=== PATIENT | female | born 1985 | race Caucasian/White ===

== ENCOUNTER 2022-10-04 11:00 | Emergency (ER) | payer MEDICAID ==
[~2022-10-04] VITALS: Ht 167.6 cm; Wt 70.9 kg
[~2022-10-04 11:00] MED LIST: CEPH500C PO; PHEN-922 PO
[2022-10-04 11:27] LABS: Urine Bacteria NONE SEEN /hpf (None Seen); Urine Blood Negative /uL (Negative); Urine Mucus FEW (None Seen); Urine Specific Gravity 1.023 (1.001-1.035); Urine WBC 2 /hpf (0 - 5)
[2022-10-04] MEDS ORDERED: DIPH25CA51 PO (12:24)
[2022-10-04] MEDS ORDERED: FAMO20TA10 GT (12:24)
[2022-10-04] MEDS ORDERED: PRED20TA2 PO (12:24)
[2022-10-04] MEDS ORDERED: predniSONE 20 MG TAB PO ONE (12:30)
[2022-10-04] MEDS ORDERED: FAMOTIDINE 20 MG TAB PO ONE (12:30)
[2022-10-04 12:41] VITALS: BP 123/91; PULSE 98; RESP 17; TEMP 98.9; O2SAT 98
== END 2022-10-04 12:44 | disposition home or self-care (01) ==
LOC: ER 11:00 → EEVIPCON 11:00 → ER 12:44
DX: R30.0 Dysuria (principal); T78.40XA Allergy, unspecified, initial encounter; Z79.899 Other long term (current) drug therapy; X58.XXXA Exposure to other specified factors, initial encounter
CPT/HCPCS: 81001; 99283; J7512

== ENCOUNTER 2022-12-11 09:26 | Emergency (ER) | payer MEDICAID ==
[~2022-12-11] VITALS: Ht 167.6 cm; Wt 70.9 kg
[~2022-12-11 09:26] MED LIST changes: +DIPH25CA51 PO; +FAMO20TA10 GT; +PRED20TA2 PO
[2022-12-11 09:45] VITALS: BP 143/99; PULSE 135; RESP 20; TEMP 97.8; O2SAT 99
[2022-12-11] MEDS ORDERED: LIDOCAINE 1% HCL (LOCAL ANESTH.) INJ 20ML MDV IJ ONE (10:00)
[2022-12-11] MEDS ORDERED: HYDROcodone-ACET 10/325MG TAB PO ONE (10:30)
[2022-12-11] MEDS ORDERED: TETANUS-DIPTH-ACEL PERTUSSIS 0.5ML SYR Tdap IM ONE (12:15)
[2022-12-11] MEDS ORDERED: ACET300T51 PO (12:17)
[2022-12-11] MEDS ORDERED: BACIOIN15 TOP (12:17)
[2022-12-11] MEDS ORDERED: AUG875T PO (12:17)
[2022-12-11] MEDS ORDERED: IBUP-1455 PO (12:17)
== END 2022-12-11 12:45 | disposition home or self-care (01) ==
LOC: ER 09:26 → EEVIPCON 09:26 → ER 12:45
DX: S62.635A Displaced fracture of distal phalanx of left ring finger, initial encounter for closed fracture (principal); S62.631A Displaced fracture of distal phalanx of left index finger, initial encounter for closed fracture; S61.211A Laceration without foreign body of left index finger without damage to nail, initial encounter; S61.215A Laceration without foreign body of left ring finger without damage to nail, initial encounter; S80.02XA Contusion of left knee, initial encounter; S80.01XA Contusion of right knee, initial encounter; W54.0XXA Bitten by dog, initial encounter; Y93.89 Activity, other specified; Y92.89 Other specified places as the place of occurrence of the external cause; Y99.8 Other external cause status
CPT/HCPCS: 12001; 29130; 73130; 90471; 90715; 99284; J2001

== ENCOUNTER 2022-12-15 13:24 | Emergency (ER) | payer MEDICAID ==
[~2022-12-15] VITALS: Ht 167.6 cm; Wt 71.2 kg
[~2022-12-15 13:24] MED LIST changes: +ACET300T51 PO; +AUG875T PO; +BACIOIN15 TOP; +IBUP-1455 PO
[2022-12-15] MEDS ORDERED: CLINDAMYCIN 600MG IV 50 ML IV ONE (14:15)
[2022-12-15 14:20] VITALS: BP 123/83; PULSE 118; RESP 16; TEMP 97.9; O2SAT 96
== END 2022-12-15 15:37 | disposition home or self-care (01) ==
LOC: ER 13:24 → EEVIPCON 13:24 → ER 15:35
DX: S62.603D Fracture of unspecified phalanx of left middle finger, subsequent encounter for fracture with routine healing (principal); Z48.00 Encounter for change or removal of nonsurgical wound dressing; Z88.1 Allergy status to other antibiotic agents; W54.0XXD Bitten by dog, subsequent encounter
CPT/HCPCS: 96365; 99284; J3490

== ENCOUNTER 2024-05-16 18:39 | Inpatient (IN) | payer MEDICAID, SELFPAY ==
[~2024-05-16] VITALS: Ht 167.6 cm; Wt 77.7 kg
[~2024-05-16 18:39] MED LIST changes: +NITR-87 PO
--- NOTE | 2024-05-16 19:08 | ED.PDOC ---
History of Present Illness HPI Comments 39-year-old female that came to emergency room due to nausea and vomiting. Patient was apparently well, came to work this morning, at about 11am, she started having upper body pains and aches, headaches. and later associated with cramping abdominal pain with bouts of nausea and vomiting. Patient states she feels very dehydrated and she started drinking copious amounts of fluids to keep hydrated. She started feeling short of breath as well, and one hour ago, she started having bouts of diarrhea as well. No fever noted. Patient states a co worker of hers is experiencing the same symptoms also. Chief Complaint: Nausea/Vomiting Time Seen by MD: 19:06 Primary Care Provider: Sybil Dupree Notes: Nurses Notes Allergies: Coded Allergies: Cephalexin (Verified Allergy, Unknown, 12/11/22) Home Meds Active Scripts Nitrofurantoin Monohydrate Mac (Macrobid) 100 Mg Cap, 100 MG PO BID for 5 Days, #10 CAP Prov:LEVY CALABRESEP 04/28/24 Bacitracin Base (Bacitracin) 500 Unit/Gm Oin, 500 UNIT TOP BID, #30 GM Prov:YUE STARR PAC 12/11/22 Acetaminophen W/ Codeine (Acetaminophen/Codeine) 1 Tab Tab, 1 TAB PO Q6HR, #20 TAB Prov:YUE STARR PAC 12/11/22 Amoxicillin & Pot Clavulanate (AUGMENTIN TABLET) 875 Mg Tb, 875 MG PO BID for 10 Days, #20 TAB Prov:YUE STARR PAC 12/11/22 Ibuprofen Micronized (Ibuprofen) 800 Mg Tab, 800 MG PO Q8HP PRN, #30 TAB Prov:YUE STARR PAC 12/11/22 Diphenhydramine Hcl (BENADRYL CAPSULE) 25 Mg Cp, 50 MG PO Q6HP PRN, #20 CAP Prov:LEX DELGADO MD 10/04/22 Famotidine (PEPCID TABLET) 20 Mg Tb, 20 MG GT BID, #8 TAB Prov:LEX DELGADO MD 10/04/22 Prednisone (Prednisone) 20 Mg Tab, 40 MG PO DAILY, #8 MG Prov:LEX DELGADO MD 10/04/22 Phenazopyridine HCl (Phenazopyridine Hydrochlo) 200 Mg Tab, 1 TAB PO TID for 3 Days, #9 TAB Prov:YEIMI DUPREE TONE REGULATOR 09/19/22 Cephalexin Monohydrate (Cephalexin) 500 Mg Cap, 1 CAP PO QID for 10 Days, #40 CAP Prov:YEIMI DUPREE TONE REGULATOR 09/19/22 Information Source: Patient Mode of Arrival: Ambulatory Severity: Moderate Timing: Hours Duration: Since onset Review of Systems REVIEW OF SYSTEMS: No fever, no chills, or fatigue (+) myalgia HEENT: No sore throat, no earache, no congestion, no neck pain. Cardiac: No chest pain. No palpitations. Lungs: (+) shortness of breath, no cough. GI: (+) nausea, (+) vomiting, (+) diarrhea, no constipation, (+) abdominal pain (+) polydipsia : No dysuria, frequency, or urgency. No hematuria. Musculoskeletal: No joint pain , no joint swelling, no extremity edema. Skin: No rash, no itching. Neuro: (+) headache, no dizziness, no weakness Vital Signs Vital Signs Date Time Temp Pulse Resp B/P (MAP) Pulse Ox O2 Delivery O2 Flow Rate FiO2 05/16/24 22:00 98.8 87 16 120/76 (91) 95 98.8 05/16/24 19:28 Room Air* 0 21 Physical Exam General: Awake, alert and oriented. No acute distress. Skin: Skin in warm, dry and intact. Appropriate color for ethnicity. Nailbeds pink with no cyanosis. HEENT: The head is normocephalic and atraumatic. Conjunctivae are clear without exudates or hemorrhage. Sclera is non-icteric. EOM are intact. No signs of nystagmus. Eyelids are normal in appearance without swelling or lesions. Oral mucosa is pink and moist Neck: The neck is supple with normal range of motion. No JVD. Cardiac: Rapid rate, regular rhythm No murmurs, gallops, or rubs are auscultated. Respiratory: No signs of respiratory distress. Lung sounds are clear in all lobes bilaterally without rales, ronchi, or wheezes. Abdominal: Abdomen is soft, non-tender without distention. Bowel sounds are present and normoactive in all four quadrants. Extremities: Upper and lower extremities are atraumatic in appearance without deformity or edema. Neurological: The patient is awake, alert and oriented to person, place, and time with normal speech. Speech is clear. There is no facial asymmetry. Psychiatric: Appropriate mood and affect. Good judgement and insight. No visual or auditory hallucinations. Past Medical History PAST MEDICAL HISTORY: Anxiety Surgical History: Denies all surgeries [employer] MECHANIC History: No Pertinent [employer]ST[employer] MECHANIC History Family History Family History: Reviewed,noncontributory to illness Social History Smoker: Cigarettes Alcohol: Denies ETOH Use Drugs: Denies Drug Use Lives In: Home Was a procedure done? Was a procedure done?: No Differential Dx Considerations may include: Anemia, electrolyte imbalance, dehydration, viral syndrome, gastroenteritis X-Ray, Labs, Meds, VS Vital Signs Date Time Temp Pulse Resp B/P (MAP) Pulse Ox O2 Delivery O2 Flow Rate FiO2 05/16/24 22:00 98.8 87 16 120/76 (91) 95 98.8 05/16/24 19:28 84 20 100 Room Air* 0 21 05/16/24 19:28 99.7 84 20 126/78 (94) 100 99.7 05/16/24 19:11 99.3 103 22 117/71 (86) 100 99.3 05/16/24 18:46 97.6 121 18 132/95 (107) 99 97.6 Lab Test 05/16/24 20:16 05/16/24 20:11 05/16/24 19:17 05/16/24 19:07 Range/Units Lactic Acid Level 1.5 0.4-2.0 mmol/L Influenza Type A Antigen Negative Negative Influenza Type B Antigen Negative Negative SARS-CoV-2 Antigen (Rapid) Negative NEGATIVE Hemoglobin A1c 4.8 <5.7 % A1C White Blood Count 17.7 H 4.4-10.8 10^3/uL Red Blood Count 4.44 4.0-5.20 10^6/uL Hemoglobin 13.6 12.2-16.2 g/dL Hematocrit 40.7 36.0-46.0 % Mean Corpuscular Volume 91.7 80.0-100.0 fL Mean Corpuscular Hemoglobin 30.6 28.0-32.0 pg Mean Corpuscular Hemoglobin Concent 33.3 32.0-36.0 g/dL Red Cell Distribution Width 13.2 11.8-14.3 % Platelet Count 306 140-450 10^3/uL Mean Platelet Volume 7.8 6.9-10.8 fL Neutrophils (%) (Auto) 94.3 H 37.0-80.0 % Lymphocytes (%) (Auto) 2.9 L 10.0-50.0 % Monocytes (%) (Auto) 2.0 0.0-12.0 % Eosinophils (%) (Auto) 0.5 0.0-7.0 % Basophils (%) (Auto) 0.3 0.0-2.0 % Neutrophils # (Auto) 16.7 H 1.6-8.6 10 ^3/uL Lymphocytes # (Auto) 0.5 0.4-5.4 10 ^3/uL Monocytes # (Auto) 0.4 0-1.3 10 ^3/uL Eosinophils # (Auto) 0.1 0-0.8 10 ^3/uL Basophils # (Auto) 0 0-0.2 10 ^3/uL Nucleated Red Blood Cells 0.0 % Sodium Level 138 136-145 mmol/L Potassium Level 4.0 3.5-5.1 mmol/L Chloride Level 109 H 98-107 mmol/L Carbon Dioxide Level 20 20-31 mmol/L Anion Gap 9 5-15 Blood Urea Nitrogen 14 9-23 mg/dL Creatinine 0.69 0.550-1.02 mg/dL Glomerular Filtration Rate Calc 113 >90 mL/min BUN/Creatinine Ratio 20.3 H 10.0-20.0 Serum Glucose 127 H 74-106 mg/dL Calcium Level 9.7 8.7-10.4 mg/dL Total Bilirubin 0.7 0.2-1.0 mg/dL Aspartate Amino Transferase (AST) 17 13-40 U/L Alanine Aminotransferase (ALT) 17 7-40 U/L Alkaline Phosphatase 51 46-116 U/L Total Protein 7.3 5.7-8.2 g/dL Albumin 4.7 3.2-4.8 g/dL Lipase 39 12-53 U/L Thyroid Stimulating Hormone (TSH) 0.78 0.55-4.78 uIU/mL Test 05/16/24 18:49 05/16/24 18:46 Range/Units Urine Color Yellow Yellow Urine Clarity Clear Clear Urine pH 7.0 5.0-9.0 Urine Specific [place] 1.035 1.001-1.035 Urine Protein Trace H Negative Urine Ketones 1+ H Negative Urine Blood Negative Negative /uL Urine Nitrite Negative Negative Urine Bilirubin Negative Negative Urine Urobilinogen Normal Negative mg/dL Urine Leukocyte Esterase Negative Negative /uL Urine RBC 1 0 - 4 /hpf Urine Microscopic WBC < 1 0-5 /HPF Urine Squamous Epithelial Cells Few <5 /hpf Urine Bacteria None seen None Seen /hpf Urine Mucus Few None Seen Urine Glucose Normal Normal mg/dL Urine Test Negative Negative Urine Opiates Screen Neg NEGATIVE Urine Fentanyl Screen Neg NEGATIVE Urine Barbiturates Screen Neg NEGATIVE Urine Phencyclidine Screen Neg NEGATIVE Urine Amphetamines Screen Pos NEGATIVE Urine Benzodiazepines Screen Neg NEGATIVE Urine Cocaine Screen Neg NEGATIVE Urine Cannabinoids Screen Neg NEGATIVE POC Glucose 120 H 70-106 mg/dl Current Medications Medications (Trade) Dose Ordered Sig/[place] Route Start Time Stop Time Status Last Admin Sodium Chloride 1,000 ml @ 1,000 mls/hr Q1H ONCE IV 05/16/24 19:00 05/16/24 19:59 DC 05/16/24 19:22 Ondansetron HCl (Zofran) 4 mg ONCE ONCE IV 05/16/24 19:00 05/16/24 19:01 DC 05/16/24 19:50 Ketorolac Tromethamine (Toradol Injection) 30 mg ONCE ONCE IV 05/16/24 19:00 05/16/24 19:01 DC 05/16/24 19:51 Sodium Chloride 1,000 ml @ 1,000 mls/hr Q1H ONCE IV 05/16/24 22:00 05/16/24 22:59 DC 05/16/24 21:00 Sodium Chloride 1,000 ml @ 130 mls/hr Q7H42M ONCE IV 05/16/24 22:00 05/16/24 23:16 DC 05/16/24 22:01 CHEST RADIOGRAPH Indication: Shortness of breath, cough Technique: Frontal and lateral view of the chest was obtained Comparison: None FINDINGS: Lines and Tubes: None Lungs: Clear Pleura: No effusion. No pneumothorax. Cardiomediastinal contours: Unremarkable Bones: Unremarkable IMPRESSION: No abnormality. Time of 1ST Reevaluation: 19:00 Reevaluation 1ST: Unchanged Patient Education/Counseling: Diagnosis, Treatment Family Education/Counseling: Diagnosis, Treatment Departure 1 Departure Time of Disposition: 00:39 Impression: Primary Impression: Nausea vomiting and diarrhea Additional Impression: Leukocytosis Disposition: 09 ADMITTED INPATIENT Condition: Stable Comments 39-year-old female who presents to the emergency department with nausea, vomiting, diarrhea, body aches. Labs revealed leukocytosis . Patient was tachycardic. This improved with IV fluids. Patient is afebrile, no elevation of lactic acid, she is not hypotensive. UA negative for urinary tract infection. Chest x-ray negative for pneumonia. Patient admitted for further treatment, evaluation and monitoring. Extensive evaluation was performed in attempt to identify or rule out: (See differential diagnosis section) The following tests were ordered, and results were reviewed by me: (See diagnostic results section) The following test were independently interpreted by me: N/A I reviewed and agreed with the following test results read by other providers: N/A I reviewed the following notes from the pt's past medical encounters: Previous encounter for dog bite wound Additional information was gathered from interviewing the following independent historians: Patient's at bedside Discussion of management or test interpretation with external physician/other qualified health spiritual care coordinator: N/A Decision regarding hospitalization or escalation of hospital level of care: Risk and benefits of admission for further treatment of patient's condition was considered. Due to patient's current clinical condition, high risk of decline and poor outcome if discharged and need for further inpatient management and monitoring, patient will be admitted to the hospital. Critical Care Note Critical Care Time?: No Stability Stability form required: No Heart Score Heart Score: Heart Score Response (Comments) Value History N/A 0 EKG N/A 0 Age N/A 0 Risk Factors N/A 0 Troponin N/A 0 Total 0 I personally scribed for PENNY CRANE MD ([email or web address]) on 05/16/24 at 19:08. Electronically submitted by Chris Murrieta [email or web address]). I personally scribed for PENNY CRANE MD ([email or web address]) on 05/16/24 at 22:06. Electronically submitted by Chris Murrieta [email or web address]). PENNY CRANE MD May 16, 2024 19:08
[2024-05-16] MEDS: SODIUM CHLORIDE 0.9% 1,000 ML IV ONE ×3 (19:22→22:01)
[2024-05-16 19:28] VITALS: PULSE 84; RESP 20; O2SAT 100
[2024-05-16 19:29] LABS: Basophils # (auto) 0 10 ^3/uL (0-0.2); Basophils % (auto) 0.3 % (0.0-2.0); Eosinophils # (auto) 0.1 10 ^3/uL (0-0.8); Eosinophils % (auto) 0.5 % (0.0-7.0); Hematocrit 40.7 % (36.0-46.0); Hemoglobin 13.6 g/dL (12.2-16.2); Lymphocytes # (auto) 0.5 10 ^3/uL (0.4-5.4); Lymphocytes % (auto) 2.9 % (10.0-50.0); Mean Corpuscular Hemoglobin 30.6 pg (28.0-32.0); Mean Corpuscular Hgb Conc. 33.3 g/dL (32.0-36.0); Mean Corpuscular Volume 91.7 fL (80.0-100.0); Monocytes # (auto) 0.4 10 ^3/uL (0-1.3); Neutrophils # (auto) 16.7 10 ^3/uL (1.6-8.6); Neutrophils % (auto) 94.3 % (37.0-80.0); Platelet Count (auto) 306 10^3/uL (140-450); Red Blood Cells 4.44 10^6/uL (4.0-5.20); Red Cell Distribution Width 13.2 % (11.8-14.3); White Blood Cell 17.7 10^3/uL (4.4-10.8)
[2024-05-16 19:44] LABS: Alanine Aminotransferase 17 U/L (7-40); Albumin 4.7 g/dL (3.2-4.8); Alkaline Phosphatase 51 U/L (46-116); Anion Gap 9 (5-15); Aspartate Aminotransferase 17 U/L (13-40); BUN/Creatinine Ratio 20.3 (10.0-20.0); Bilirubin, Total 0.7 mg/dL (0.2-1.0); Blood Urea Nitrogen 14 mg/dL (9-23); Calcium 9.7 mg/dL (8.7-10.4); Carbon Dioxide 20 mmol/L (20-31); Chloride 109 mmol/L (98-107); Glucose 127 mg/dL (74-106); Lipase 39 U/L (12-53); Sodium 138 mmol/L (136-145); Total Protein 7.3 g/dL (5.7-8.2)
[2024-05-16] MEDS: ONDANSETRON HCL 4 MG/2 ML VIAL IV ONE (19:50)
[2024-05-16] MEDS: KETOROLAC TROMETH 30 MG/ML 1ML VIAL IV ONE (19:51)
[2024-05-16] MEDS ORDERED: SODIUM CHLORIDE 0.9% 1,000 ML IV ONE (20:15)
--- NOTE | 2024-05-16 21:11 | DVH ---
CHEST RADIOGRAPH Indication: Shortness of breath, cough Technique: Frontal and lateral view of the chest was obtained Comparison: None FINDINGS: Lines and Tubes: None Lungs: Clear Pleura: No effusion. No pneumothorax. Cardiomediastinal contours: Unremarkable Bones: Unremarkable IMPRESSION: No abnormality.
[2024-05-16 21:14] LABS: COVID19 ANTIGEN SOFIA FIA NEGATIVE (NEGATIVE); Rapid Influenza A Negative (Negative); Rapid Influenza B Negative (Negative)
[2024-05-16 21:33] LABS: Urine Bacteria None Seen /hpf (None Seen)
[2024-05-16 21:53] LABS: Urine Blood Negative /uL (Negative); Urine Clarity Clear (Clear); Urine Color Yellow (Yellow); Urine Mucus FEW (None Seen); Urine Protein, UAD TRACE (Negative); Urine Specific Gravity 1.035 (1.001-1.035); Urine Squamous Epithelial Cell FEW /hpf (<5); Urine Urobilinogen Normal (Negative); Urine WBC < 1 /HPF (0-5)
[2024-05-16] MEDS ORDERED: cefTRIAXone 1GM/50ML D5W 50 ML IV ONE (23:00)
--- NOTE | 2024-05-16 23:14 | DVHHPRES ---
History of Present Illness Resident Creating Document: NAKUL SANTILLAN RESIDENT Reason for Visit: abdominal pains, nausea and vomiting History of Present Illness 39 year old female with no known past medical history, presents to the ED with a complaints of abdominal pain, nausea and vomiting that started this afternoon. Patient mentioned that this afternoon while at work she came in contact with a work colleagues who was feeling unwell. When she went home, she started feeling unwell started having persistent nausea vomiting coupled with a diarrhea. Diarrhea is watery with mucus, but not bloody and no and no blood. course any she is unable to keep anything down and patient decided to come to the ED to be evaluated. Denies any chest pain, shortness of breath, fevers, dizziness or weakness. Pmhx: None PShx: left hand fracture repair Fmhx: lungs cancer( small cell carcinoma) in mother, grandfather and uncle Shx; smokes 1 pack in 4 days, alcohol during occasions Past Medical History See HPI Past Surgical History See HPI Review of Systems Constitutional: No: Fever, Chills, Sweats, Weakness, Malaise, Other Eyes: No: Pain, Vision change, Conjunctivae inflammation, Eyelid inflammation, Other, Redness ENT: No: Ear pain, Ear discharge, Nose pain, Nose discharge, Nose congestion, Mouth pain, Mouth swelling, Throat pain, Throat swelling, Other Respiratory: No: Cough, Dry, Shortness of breath, SOB with excertion, Wheezing, Hemoptysis, Pleuritic Pain, Sputum, Wheezing, Other Cardiovascular: Chest Pain; No: Palpitations, Orthopnea, Paroxysmal Noc. Dyspnea, Edema, Lt Headedness, Other Gastrointestinal: Nausea, Vomiting, Abdominal Pain, Diarrhea Genitourinary: Dysuria; No Frequency, No Incontinence, No Hematuria, No Retention, No Other Musculoskeletal: No: other, neck pain, shoulder pain, arm pain, back pain, hand pain, leg pain, foot pain Skin: No: Rash, Lesions, Jaundice, Bruising, Other Allergies: Coded Allergies: Cephalexin (Verified Allergy, Unknown, 12/11/22) Exam Vital Signs Vital Signs Date Time Temp Pulse Resp B/P (MAP) Pulse Ox O2 Delivery O2 Flow Rate FiO2 05/16/24 22:00 98.8 87 16 120/76 (91) 95 98.8 05/16/24 19:28 Room Air* 0 21 Exam General Appearance: Alert, Oriented X3, Cooperative, Mild distress HEENT: Atraumatic, PERRLA, EOMI, Mucous membrane moist/pink Respiratory: Clear to auscultation, Normal air movement Cardiovascular: Regular rate, Normal S1, Normal S2, No murmurs, no chest wall tenderness Abdominal: NO distention, tenderness, positive davis's sign, bowel sounds present, no scars noted Extremities: No clubbing, No cyanosis, No edema, Normal pulses, No tenderness/swelling Skin: No rashes, No breakdown, No significant lesion Neuro: Normal gait, Normal speech, Strength at 5/5 X4 ext, Normal tone, Sensation intact, Cranial nerves 3-12 NL, Reflexes 2+ Psych/Mental Status: Mental status NL, Mood NL Labs/Xrays Labs Test 05/16/24 20:16 05/16/24 20:11 05/16/24 19:07 05/16/24 18:49 Range/Units Lactic Acid Level 1.5 0.4-2.0 mmol/L Influenza Type A Antigen Negative Negative Influenza Type B Antigen Negative Negative SARS-CoV-2 Antigen (Rapid) Negative NEGATIVE White Blood Count 17.7 H 4.4-10.8 10^3/uL Red Blood Count 4.44 4.0-5.20 10^6/uL Hemoglobin 13.6 12.2-16.2 g/dL Hematocrit 40.7 36.0-46.0 % Mean Corpuscular Volume 91.7 80.0-100.0 fL Mean Corpuscular Hemoglobin 30.6 28.0-32.0 pg Mean Corpuscular Hemoglobin Concent 33.3 32.0-36.0 g/dL Red Cell Distribution Width 13.2 11.8-14.3 % Platelet Count 306 140-450 10^3/uL Mean Platelet Volume 7.8 6.9-10.8 fL Neutrophils (%) (Auto) 94.3 H 37.0-80.0 % Lymphocytes (%) (Auto) 2.9 L 10.0-50.0 % Monocytes (%) (Auto) 2.0 0.0-12.0 % Eosinophils (%) (Auto) 0.5 0.0-7.0 % Basophils (%) (Auto) 0.3 0.0-2.0 % Neutrophils # (Auto) 16.7 H 1.6-8.6 10 ^3/uL Lymphocytes # (Auto) 0.5 0.4-5.4 10 ^3/uL Monocytes # (Auto) 0.4 0-1.3 10 ^3/uL Eosinophils # (Auto) 0.1 0-0.8 10 ^3/uL Basophils # (Auto) 0 0-0.2 10 ^3/uL Nucleated Red Blood Cells 0.0 % Sodium Level 138 136-145 mmol/L Potassium Level 4.0 3.5-5.1 mmol/L Chloride Level 109 H 98-107 mmol/L Carbon Dioxide Level 20 20-31 mmol/L Anion Gap 9 5-15 Blood Urea Nitrogen 14 9-23 mg/dL Creatinine 0.69 0.550-1.02 mg/dL Glomerular Filtration Rate Calc 113 >90 mL/min BUN/Creatinine Ratio 20.3 H 10.0-20.0 Serum Glucose 127 H 74-106 mg/dL Calcium Level 9.7 8.7-10.4 mg/dL Total Bilirubin 0.7 0.2-1.0 mg/dL Aspartate Amino Transferase (AST) 17 13-40 U/L Alanine Aminotransferase (ALT) 17 7-40 U/L Alkaline Phosphatase 51 46-116 U/L Total Protein 7.3 5.7-8.2 g/dL Albumin 4.7 3.2-4.8 g/dL Lipase 39 12-53 U/L Urine Color Yellow Yellow Urine Clarity Clear Clear Urine pH 7.0 5.0-9.0 Urine Specific [place] 1.035 1.001-1.035 Urine Protein Trace H Negative Urine Ketones 1+ H Negative Urine Blood Negative Negative /uL Urine Nitrite Negative Negative Urine Bilirubin Negative Negative Urine Urobilinogen Normal Negative mg/dL Urine Leukocyte Esterase Negative Negative /uL Urine RBC 1 0 - 4 /hpf Urine Microscopic WBC < 1 0-5 /HPF Urine Squamous Epithelial Cells Few <5 /hpf Urine Bacteria None seen None Seen /hpf Urine Mucus Few None Seen Urine Glucose Normal Normal mg/dL Urine Test Negative Negative Test 05/16/24 18:46 Range/Units POC Glucose 120 H 70-106 mg/dl Assessment/Plan Assessment/Plan Sepsis due to gastroenteritis --> WBC; 17.1 --> HR: 121 --> Antibiotics: Levofloxacin and Metronidazole Gastroenteritis --> stool ova and parasite --> Stool culture, wbc and pH --> IV fluid replacement Abdominal pains rule out acute cholecystitis --> Positive davis's sign --> CT abdomen Hyperglycemia --> Blood glucose of120 --> repeat blood glucose in the AM Nausea and Vomiting --> Zofran --> give magnesium --> Monitor kidney function --> fluid replacement Plan discussed with: Patient My Orders Orders - NAKUL SANTILLAN RESIDENT Procedure Category Date Status Time Admit ADMIT 05/16/24 Transmitted 22:59 Code Status CODE 05/16/24 Transmitted 22:59 Vital Signs [facility] 05/16/24 Transmitted 22:59 Review Orders With [facility] 05/16/24 Transmitted Adm. 22:59 Notify Md Of Changes [facility] 05/16/24 Transmitted From Base 22:59 Advance Directive [facility] 05/16/24 Transmitted 22:59 Urine Bacterial [facility]NEY 05/16/24 Transmitted Culture 22:59 Patient Condition ORDERS 05/16/24 Transmitted 22:59 Allergies ASHOK 05/16/24 Transmitted 22:59 Ondansetron Hcl PHA 05/16/24 Transmitted (Zofran) 23:00 Drug Screen LAB 05/16/24 Transmitted 22:59 Notify Md Of Changes [facility] 05/16/24 Transmitted From Base 22:59 Troponin-I Hs LAB 05/16/24 Transmitted 22:59 Stool Bacterial BRITTNEY 05/16/24 Transmitted Culture 22:59 Stool Wbc LAB 05/16/24 Transmitted 22:59 Ph Stool LAB 05/16/24 Transmitted 22:59 Ova & Parasite Exam BRITTNEY 05/16/24 Transmitted 22:59 NS PHA 05/16/24 Transmitted 23:00 NS PHA 05/16/24 Transmitted 23:00 Clear Liq Diet DIET 05/17/24 Transmitted Breakfast Complete Blood Count LAB 05/17/24 Verified 04:00 Basic Metabolic Panel LAB 05/17/24 Verified 04:00 Thyroid Stimulating LAB 05/16/24 Transmitted Hormone 22:59 Magnesium LAB 05/16/24 Transmitted 22:59 Ceftriaxone Ivpb PHA 05/16/24 Transmitted Rocephin 23:00 Ceftriaxone Ivpb PHA 05/17/24 Transmitted Rocephin 09:00 Metronidazole Ivpb PHA 05/16/24 Transmitted Flagyl 23:00 Metronidazole Ivpb PHA 05/17/24 Transmitted Flagyl 06:00 Date of Service: May 16, 2024 Billing Provider: KAELYN REESE MD Common Visit Codes: 48282-[id number] INP/OBS CARE (HIGH) NAKUL SANTILLAN RESIDENT May 16, 2024 23:14 KAELYN REESE MD May 17, 2024 01:03
[2024-05-16] MEDS: metroNIDAZOLE 500MG/100ML 100 ML IV ONE (23:24)
[2024-05-16] MEDS: SODIUM CHLORIDE 0.9% 1,000 ML IV SCH (23:24)
[2024-05-16] MEDS: SODIUM CHLORIDE 0.9% 500 ML IV ONE (23:24)
[2024-05-16 23:44] LABS: Amphetamine Screen, Urine Pos (NEGATIVE); Barbiturate Scree,Urine Neg (NEGATIVE); Benzodiazephine Screen, Urine Neg (NEGATIVE); Cocaine Screen, Urine Neg (NEGATIVE)
[2024-05-16 23:50] VITALS: BP 116/83; PULSE 86; RESP 19; TEMP 98.2; O2SAT 99
[2024-05-17] VITALS (8 sets, daily range): BP systolic 116–130; BP diastolic 78–86; PULSE 85–94; RESP 16–19; TEMP 98.2–100; O2SAT 96–100
[2024-05-17 00:03] LABS: Cannabinoid Screen, Urine Neg (NEGATIVE); Opiate Scree,Urine Neg (NEGATIVE); Phencyclidine Screen, Urine Neg (NEGATIVE)
[2024-05-17] MEDS: ONDANSETRON HCL 4 MG/2 ML VIAL IV PRN (00:13)
[2024-05-17] MEDS: levoFLOXacin 500MG 100 ML IV ONE (00:22)
[2024-05-17] MEDS: FAMOTIDINE (10MG/ML) 2ML VL IV ONE (00:38)
[2024-05-17] MEDS ORDERED: MORPHINE SULFATE INJ 2 MG/ml SYRG IV PRN (00:45)
[2024-05-17] MEDS: metroNIDAZOLE 500MG/100ML 100 ML IV SCH (05:06)
--- NOTE | 2024-05-17 06:24 | ECG ---
[facility] Test Date: 2024-05-16 Test Time: 22:52:11 Pat Name: CECI SORIANO Department: ER Room: 0282 A Gender: F Nurses' Aide: DARLYN : 1985 Requested By: PENNY CRANE Order Number: [id number] Reading MD: Nacho Sharpe Measurements Intervals [place] Rate: 82 P: 63 [place]: 161 QRS: 85 QRSD: 112 T: 53 QT: 410 QTc: 479 Interpretive Statements Sinus rhythm Borderline intraventricular conduction delay Borderline T wave abnormalities Electronically Signed On 05-17-2024 19:23:04 PDT by Nacho Sharpe Please click the below link to view image of tracing.
[2024-05-17 07:40] LABS: Basophils # (auto) 0 10 ^3/uL (0-0.2); Basophils % (auto) 0.3 % (0.0-2.0); Eosinophils # (auto) 0 10 ^3/uL (0-0.8); Eosinophils % (auto) 0.5 % (0.0-7.0); Hemoglobin 11.8 g/dL (12.2-16.2); Lymphocytes # (auto) 0.5 10 ^3/uL (0.4-5.4); Lymphocytes % (auto) 6.8 % (10.0-50.0); Mean Corpuscular Hemoglobin 30.2 pg (28.0-32.0); Mean Corpuscular Hgb Conc. 32.8 g/dL (32.0-36.0); Mean Corpuscular Volume 92.1 fL (80.0-100.0); Monocytes # (auto) 0.4 10 ^3/uL (0-1.3); Monocytes % (auto) 5.4 % (0.0-12.0); Neutrophils # (auto) 6.7 10 ^3/uL (1.6-8.6); Platelet Count (auto) 220 10^3/uL (140-450); Red Blood Cells 3.91 10^6/uL (4.0-5.20); Red Cell Distribution Width 12.7 % (11.8-14.3); White Blood Cell 7.7 10^3/uL (4.4-10.8)
[2024-05-17 07:59] LABS: Anion Gap 8 (5-15); Carbon Dioxide 21 mmol/L (20-31); Potassium 3.5 mmol/L (3.5-5.1); Sodium 137 mmol/L (136-145)
[2024-05-17 08:02] LABS: Calcium 7.9 mg/dL (8.7-10.4); Chloride 108 mmol/L (98-107)
[2024-05-17 08:05] LABS: BUN/Creatinine Ratio 14.3 (10.0-20.0); Blood Urea Nitrogen 9 mg/dL (9-23); Glucose 94 mg/dL (74-106)
[2024-05-17] MEDS ORDERED: cefTRIAXone 1GM/50ML D5W 50 ML IV SCH (09:00)
--- NOTE | 2024-05-17 09:59 | DVH ---
CLINICAL INFORMATION: 39 years old, Female; Gastroenteritis. Lower abdominal/ pelvic pain. Vomiting . TECHNIQUE: Axial CT images of the abdomen and pelvis were obtained without IV contrast. Coronal and s agittal reformatted images were obtained, reviewed, and stored. Evaluation of the parenchymal organs is limited without IV contrast. Evaluation of the bowel and mesentery is limited without oral contras t. All CT scans at this medical facility are performed using dose modulation techniques as appropriat e to a performed exam including the following: Automated exposure control was utilized; adjustment of the MA and/or KV according to patient size; and use of iterative reconstruction technique. CTDIvol = 9.28 mGy DLP = 440.74 mGy-cm COMPARISON: None FINDINGS: Lung bases: Lung bases are clear. Liver: Grossly unremarkable in its noncontrast enhanced appearance. No abnormal density or focal lesi on identified. Biliary: No calcified gallstones or biliary ductal dilatation. Spleen: Unremarkable. Pancreas: Grossly unremarkable in its noncontrast enhanced appearance. Adrenal glands: Unremarkable. No mass. Kidneys: No hydronephrosis. No renal or ureteral calculi. Aorta/Vascular: No aneurysm or significant calcification. Retroperitoneum: Probable subcentimeter para-aortic and interaortocaval lymph nodes, poorly visualize d due to paucity of retroperitoneal fat. Bowel/mesentery: Nonspecific mildly distended fluid-filled small bowel loops. No small bowel obstruct ion. Appendix is visualized and appears unremarkable. Scattered small colonic diverticula without ad jacent inflammatory changes to suggest diverticulitis. Pelvic organs: Grossly unremarkable. Bladder: Unremarkable. No mass. Abdominal wall: No mass or hernia. Bones: No acute fracture or suspicious intraosseous lesion. IMPRESSION: 1. Nonspecific mildly distended fluid-filled small bowel loops. Findings may be seen with ileus or en teritis in the appropriate clinical setting. No small bowel obstruction. 2. Scattered small colonic diverticula without adjacent inflammatory changes to suggest diverticuliti s. 3. Normal-appearing appendix. 4. Additional nonacute findings as detailed above.
[2024-05-17] MEDS: FAMOTIDINE (10MG/ML) 2ML VL IV SCH (10:00)
[2024-05-17] MEDS: levoFLOXacin 500MG 100 ML IV SCH (13:54)
[2024-05-17] MEDS ORDERED: METR-344 PO (15:04)
--- NOTE | 2024-05-17 15:09 | DVHDS2 ---
Discharge Summary Date of Admission May 16, 2024 at 22:59 Date of Discharge: May 17, 2024 Admitting Diagnosis Acute Gastroenteritis Labs/Diagnostic Data: Laboratory Results Test 05/17/24 06:39 05/16/24 23:20 05/16/24 20:16 05/16/24 20:11 White Blood Count 7.7 10^3/uL (4.4-10.8) Red Blood Count 3.91 10^6/uL (4.0-5.20) Hemoglobin 11.8 g/dL (12.2-16.2) Hematocrit 36.0 % (36.0-46.0) Mean Corpuscular Volume 92.1 fL (80.0-100.0) Mean Corpuscular Hemoglobin 30.2 pg (28.0-32.0) Mean Corpuscular Hemoglobin Concent 32.8 g/dL (32.0-36.0) Red Cell Distribution Width 12.7 % (11.8-14.3) Platelet Count 220 10^3/uL (140-450) Mean Platelet Volume 8.0 fL (6.9-10.8) Neutrophils (%) (Auto) 87.0 % (37.0-80.0) Lymphocytes (%) (Auto) 6.8 % (10.0-50.0) Monocytes (%) (Auto) 5.4 % (0.0-12.0) Eosinophils (%) (Auto) 0.5 % (0.0-7.0) Basophils (%) (Auto) 0.3 % (0.0-2.0) Neutrophils # (Auto) 6.7 10 ^3/uL (1.6-8.6) Lymphocytes # (Auto) 0.5 10 ^3/uL (0.4-5.4) Monocytes # (Auto) 0.4 10 ^3/uL (0-1.3) Eosinophils # (Auto) 0 10 ^3/uL (0-0.8) Basophils # (Auto) 0 10 ^3/uL (0-0.2) Nucleated Red Blood Cells 0.0 % Sodium Level 137 mmol/L (136-145) Potassium Level 3.5 mmol/L (3.5-5.1) Chloride Level 108 mmol/L (98-107) Carbon Dioxide Level 21 mmol/L (20-31) Anion Gap 8 (5-15) Blood Urea Nitrogen 9 mg/dL (9-23) Creatinine 0.63 mg/dL (0.550-1.02) Glomerular Filtration Rate Calc 116 mL/min (>90) BUN/Creatinine Ratio 14.3 (10.0-20.0) Serum Glucose 94 mg/dL (74-106) Calcium Level 7.9 mg/dL (8.7-10.4) Magnesium Level 1.8 mg/dL (1.6-2.6) Troponin I High Sensitivity < 3 ng/L (</=34) Beta HCG, Quantitative 0.6 mIU/mL (1.5-4.2) Lactic Acid Level 1.5 mmol/L (0.4-2.0) Influenza Type A Antigen Negative (Negative) Influenza Type B Antigen Negative (Negative) SARS-CoV-2 Antigen (Rapid) Negative (NEGATIVE) Test 05/16/24 19:17 05/16/24 19:07 05/16/24 18:49 05/16/24 18:46 Hemoglobin A1c 4.8 % A1C (<5.7) Total Bilirubin 0.7 mg/dL (0.2-1.0) Aspartate Amino Transferase (AST) 17 U/L (13-40) Alanine Aminotransferase (ALT) 17 U/L (7-40) Alkaline Phosphatase 51 U/L (46-116) Total Protein 7.3 g/dL (5.7-8.2) Albumin 4.7 g/dL (3.2-4.8) Lipase 39 U/L (12-53) Thyroid Stimulating Hormone (TSH) 0.78 uIU/mL (0.55-4.78) Urine Color Yellow (Yellow) Urine Clarity Clear (Clear) Urine pH 7.0 (5.0-9.0) Urine Specific Keller 1.035 (1.001-1.035) Urine Protein Trace (Negative) Urine Ketones 1+ (Negative) Urine Blood Negative /uL (Negative) Urine Nitrite Negative (Negative) Urine Bilirubin Negative (Negative) Urine Urobilinogen Normal mg/dL (Negative) Urine Leukocyte Esterase Negative /uL (Negative) Urine RBC 1 /hpf (0 - 4) Urine Microscopic WBC < 1 /HPF (0-5) Urine Squamous Epithelial Cells Few /hpf (<5) Urine Bacteria None seen /hpf (None Seen) Urine Mucus Few (None Seen) Urine Glucose Normal mg/dL (Normal) Urine Test Negative (Negative) Urine Opiates Screen Neg (NEGATIVE) Urine Fentanyl Screen Neg (NEGATIVE) Urine Barbiturates Screen Neg (NEGATIVE) Urine Phencyclidine Screen Neg (NEGATIVE) Urine Amphetamines Screen Pos (NEGATIVE) Urine Benzodiazepines Screen Neg (NEGATIVE) Urine Cocaine Screen Neg (NEGATIVE) Urine Cannabinoids Screen Neg (NEGATIVE) POC Glucose 120 mg/dl (70-106) Other Laboratory Tests 05/17/24 06:39 Brief Hx & Hospital Course: History of Present Illness 39 year old female with no known past medical history, presents to the ED with a complaints of abdominal pain, nausea and vomiting that started this afternoon. Patient mentioned that this afternoon while at work she came in contact with a work colleagues who was feeling unwell. When she went home, she started feeling unwell started having persistent nausea vomiting coupled with a diarrhea. Diarrhea is watery with mucus, but not bloody and no and no blood. course any she is unable to keep anything down and patient decided to come to the ED to be evaluated. Denies any chest pain, shortness of breath, fevers, dizziness or weakness. Course of hospitalization: Patient was started on IV antibiotic therapy, IV hydration. Patient has been able to tolerate clear liquid diet. She reports that her stools are now formed and has no further abdominal discomfort. Patient is requesting to be discharged home. She will be continued on antibiotic therapy with Flagyl 500 mg p.o. 3 times a day for four more days. She will follow up with her PCP in 1-2 weeks. In addition she is instructed to advance her diet as she can tolerate. Physical examination General: Alert and Oriented x3. No acute distress. Well-nourished. Eyes: EOMI. Anicteric. HENT: Moist mucous membranes. Lungs: Clear to auscultation bilaterally. No accessory muscle use. Cardiovascular: Regular rate and rhythm. No murmur. No JVD. Abdomen: Soft, non-tender and non-distended. No palpable masses. Extremities: No edema. Non-tender. Skin: No rashes or lesions. Warm. Neurologic: No focal neurological deficits. CN II-XII grossly intact, but not individually tested. Psychiatric: Cooperative. Appropriate mood and affect. Total time spent with patient discussing and formulating plan of care: 35 minutes. This medical document was created using an electronic medical record system with [employer] dictation system. Although this document has been carefully reviewed, there may still be some phonetic and typographical errors. These areas are purely typographical due to imperfections of the software programs, and do not reflect any compromise in the patient's medical care. Condition at Discharge: Fair Final Diagnosis/Problems List Acute gastroenteritis Secondary diagnosis: SIRS, sepsis undetermined Cholecystitis ruled out Discharge Disposition: Home Discharge Instruct/Medications Diet: Regular Diet comment: Instructed liquid diet and advance as tolerated Activity: No Restrictions, As Tolerated Follow Up/Referral: PCP in 1-2 weeks Medications: Flagyl 500 mg p.o. t.i.d. x3 days Discharge Statement: "Patient was advised to return to the ER or call 911 if any headaches, dizziness, shortness of breath, chest pain, abdominal pain, bleeding, fevers, or worsening of medical condition. Patient was counseled about treatment plan, medications, possible side effects, patientverbalized understanding. All questions were answered to the best of my ability. This discharge took greater then 30 minutes in planning, reviewing documentation, counseling the patient, and discussing with other team members." ASSESSMENT ASSESSMENT Assessment Acute gastroenteritis Date of Service: May 17, 2024 Billing Provider: GABRIEL ESCOBAR NP Common Visit Codes: 93019-XGT/OBS DISCH DAY >30min GABRIEL ESCOBAR NP May 17, 2024 15:09
== END 2024-05-17 16:20 | disposition home or self-care (01) | DRG 373 ==
LOC: ER 18:43 → EEVIPCON 18:43 → OVERFLOW 22:59 → WEST WING 23:08
PROVIDERS: ATTEND Emergency Medicine
DX: A04.9 Bacterial intestinal infection, unspecified (principal); R73.9 Hyperglycemia, unspecified; F17.210 Nicotine dependence, cigarettes, uncomplicated; F41.9 Anxiety disorder, unspecified; Z88.1 Allergy status to other antibiotic agents; Z79.1 Long term (current) use of non-steroidal anti-inflammatories (NSAID); Z79.2 Long term (current) use of antibiotics; Z79.899 Other long term (current) drug therapy; Z80.1 Family history of malignant neoplasm of trachea, bronchus and lung
CPT/HCPCS: 36415; 71046; 74176; 80048; 80053; 80307; 81001; 81025; 82962; 83036; 83605; 83690; 83735; 84443; 84484; 84702; 85025; 87040; 87045; 87086; 87426; 87804; 93005; 96361; 96374; 96375; G0378; J1885; J1956; J2405; J3490